=== PATIENT | female | born 1990 ===

== ENCOUNTER → 2024-02-01 15:29 | Outpatient (CLI) | payer OTHER | END | disposition home or self-care (01) | LOC: PRENATAL 15:29 | PROVIDERS: ATTEND Obstetrics & Gynecology Maternal & Fetal Medicine | DX: O26.843 Uterine size-date discrepancy, third trimester (principal); O36.8130 Decreased fetal movements, third trimester, not applicable or unspecified; Z3A.33 33 weeks gestation of pregnancy ==

== ENCOUNTER 2024-03-16 14:40 | Inpatient (IN) | payer OTHER ==
[~2024-03-16] VITALS: Ht 167.6 cm; Wt 3.2 kg
[2024-03-16 15:28] VITALS: BP 126/86
[2024-03-16 16:22] LABS: HEMATOCRIT 33.2 % (36.0-45.00); HEMOGLOBIN 10.9 g/dL (12.0-15.00); MEAN CELL VOLUME 79.8 fL (80.00-100.00); MEAN CORPUSCULAR HEMOGLOBIN 26.2 pg (27.00-32.0); MEAN CORPUSCULAR HGB CONC 32.8 g/dl (32.0-36.0); PH,URINE 6.5 (5.0-8.0); PLATELET COUNT 273 K/uL (150-450); RED BLOOD COUNT 4.16 M/uL (4.00-6.00); RED CELL DISTRIBUTION WIDTH 18.6 % (11.5-14.5); URINE APPEARANCE Cloudy; URINE BILIRRUBIN Negative (NEGATIVE); URINE BLOOD Small; URINE COLOR Dark Yellow; URINE GLUCOSE Negative (NEGATIVE); URINE KETONE Trace (NEGATIVE); URINE LEUKOCYTE Large; URINE NITRATE Positive; URINE PROTEIN 30 (NEGATIVE)
[2024-03-16 16:26] LABS: URINE EPITHELIAL CELLS 194.3 uL (0.0-38.8); URINE RBC 13.8 uL (0.0-20.8); URINE WBC 294.2 uL (0.0-23.2)
[2024-03-16] MEDS ORDERED: PRENATAL TABLE1 EAC4 PO (16:34)
[2024-03-16 16:40] LABS: INR < 0.93; PARTIAL THROMBOPLASTIN TIME 25.9 SECONDS (22.0-34.0); PROTHROMBIN TIME 10.1 SECONDS (9.0-11.5)
[2024-03-16 16:45] LABS: ALBUMIN 2.7 gm/dL (3.4-5.0); BILIRUBIN TOTAL 0.32 mg/dL (0.3-1.2); CALCIUM 9.1 mg/dL (8.5-10.1); CREATININE SERUM 0.71 mg/dL (0.55-1.02); GFR 94.23; GLOBULINA 3.8 G/DL (2.4-3.5); POTASSIUM 4.6 mEq/L (3.5-5.1); TOTAL PROTEIN 6.5 gm/dL (6.4-8.2)
[2024-03-16] MEDS ORDERED: MISOPROSTOL 50 MCG TABLET VAG ONE (16:45)
[2024-03-16] MEDS ORDERED: hydrOXYzine PAMOATE 50 MG CAPSULE PO NR (16:45)
[2024-03-16 16:52] LABS: URINE BACTERIA > 9821.5 uL (0.0-1933); URINE MUCUS MODERATE
[2024-03-16] MEDS ORDERED: TERBUTALINE SULFATE 1 MG/ML AMPUL SUBCUTANEO SCH (20:00)
[2024-03-16 21:05] VITALS: BP 135/73; O2SAT 99
[2024-03-16 23:33] VITALS: BP 136/82
[2024-03-17] MEDS ORDERED: ACETAMINOPHEN 500 MG GEL..CAP PO ONE (03:00)
[2024-03-17 04:09] VITALS: BP 140/88
[2024-03-17] MEDS ORDERED: OXYTOCIN 500 ML IV SCH (07:45)
[2024-03-17 08:10] VITALS: BP 146/84
[2024-03-17] MEDS ORDERED: MEPERIDINE HCL/PF 50 MG/ML VIAL IV ONE (10:15)
[2024-03-17] MEDS ORDERED: PROMETHAZINE HCL 50 MG/ML AMPUL IV ONE (10:15)
[2024-03-17 15:18] VITALS: BP 150/90
[2024-03-17] MEDS ORDERED: CEFOXITIN SODIUM 2,000 MG VIAL IV ONE (16:45)
[2024-03-17] MEDS ORDERED: OXYTOCIN 1,000 ML IV SCH (17:15)
[2024-03-17] MEDS ORDERED: RINGERS SOLUTION,LACTATED 1,000 ML IV SCH (17:15)
[2024-03-17] MEDS ORDERED: OXYTOCIN 10 UNITS/ML VIAL IV ONE (18:00)
[2024-03-17] MEDS ORDERED: PROMETHAZINE HCL 50 MG/ML AMPUL IV SCH (18:00)
[2024-03-17] MEDS ORDERED: MEPERIDINE HCL/PF 50 MG/ML VIAL IV SCH (18:00)
[2024-03-17] MEDS ORDERED: SIMETHICONE 125 MG CAPSULE PO SCH (18:00)
[2024-03-17] MEDS ORDERED: ERYTHROMYCIN BASE OPHT 1GM EACH TUBE OP ONE (18:00)
[2024-03-17 19:33] VITALS: BP 140/80
[2024-03-17 19:37] LABS: HEMATOCRIT 30.6 % (36.0-45.00); HEMOGLOBIN 9.9 g/dL (12.0-15.00); MEAN CELL VOLUME 80.2 fL (80.00-100.00); MEAN CORPUSCULAR HGB CONC 32.4 g/dl (32.0-36.0); PLATELET COUNT 217 K/uL (150-450); RED BLOOD COUNT 3.81 M/uL (4.00-6.00); RED CELL DISTRIBUTION WIDTH 18.8 % (11.5-14.5)
[2024-03-18 01:24] VITALS: BP 145/89
[2024-03-18 06:20] VITALS: BP 144/80
[2024-03-18 08:00] VITALS: BP 135/70
[2024-03-18] MEDS ORDERED: ACETAMINOPHEN WITH CODEINE 1 UDTAB TABLET PO PRN (09:00)
[2024-03-18] MEDS ORDERED: DOCUSATE SODIUM 100MG CAP PO SCH (09:00)
[2024-03-18] MEDS ORDERED: NAPROXEN 500 MG TABLET PO PRN (09:00)
[2024-03-18 16:17] VITALS: BP 130/80
[2024-03-18 20:38] VITALS: BP 146/80
[2024-03-19 00:33] VITALS: BP 140/98
[2024-03-19 06:30] VITALS: BP 146/88
[2024-03-19 08:00] VITALS: BP 139/80
[2024-03-19 14:53] VITALS: BP 141/78
[2024-03-19 20:00] VITALS: BP 144/90
[2024-03-20] VITALS: BP 135/95
[2024-03-20 08:00] VITALS: BP 150/90
[2024-03-20] MEDS ORDERED: LABETALOL HCL 100 MG TABLET PO SCH (10:07)
[2024-03-20 10:26] VITALS: BP 130/85
[2024-03-20] MEDS ORDERED: NAPR500T14 PO (10:40)
[2024-03-20] MEDS ORDERED: LABETALOL HCL100 MG PO (10:40)
== END 2024-03-20 13:29 | disposition home or self-care (01) | DRG 788 ==
LOC: LDR 14:40 → O/R 03-17 16:53 → OB/GYN 03-17 18:11
PROVIDERS: ADMIT Obstetrics & Gynecology; ATTEND Obstetrics & Gynecology
PROC: 3E0P7VZ Introduction of Hormone into Female Reproductive, Via Natural or Artificial Opening (ICD-10-PCS; 2024-03-16)
PROC: 4A1HXCZ Monitoring of Products of Conception, Cardiac Rate, External Approach (ICD-10-PCS; 2024-03-16)
PROC: 3E033VJ Introduction of Other Hormone into Peripheral Vein, Percutaneous Approach (ICD-10-PCS; 2024-03-17)
PROC: 10D00Z1 Extraction of Products of Conception, Low, Open Approach (ICD-10-PCS; principal; 2024-03-17 17:30)
DX: O82 Encounter for cesarean delivery without indication (principal); Z3A.39 39 weeks gestation of pregnancy; Z37.0 Single live birth; Z20.822 Contact with and (suspected) exposure to COVID-19